=== PATIENT | male | born 1975 | race Caucasian/White ===

== ENCOUNTER → 2020-04-27 | Outpatient (CLI) | payer OTHER ==
[~2020-04-27] MED LIST: CLEOCIN HCL150 MG PO; LODINE CAP 300300 MG PO
== END ==
LOC: MRI 08:30
DX: M54.5 Low back pain (principal); N18.9 Chronic kidney disease, unspecified; C92.12 Chronic myeloid leukemia, BCR/ABL-positive, in relapse; I10 Essential (primary) hypertension; H91.90 Unspecified hearing loss, unspecified ear; R31.9 Hematuria, unspecified; D72.829 Elevated white blood cell count, unspecified; E78.2 Mixed hyperlipidemia; F17.210 Nicotine dependence, cigarettes, uncomplicated; L98.9 Disorder of the skin and subcutaneous tissue, unspecified; K64.9 Unspecified hemorrhoids; E55.9 Vitamin D deficiency, unspecified; M51.27 Other intervertebral disc displacement, lumbosacral region; M51.37 Other intervertebral disc degeneration, lumbosacral region
CPT/HCPCS: 72148

== ENCOUNTER → 2021-01-11 | Outpatient (CLI) | payer MEDICARE | LOC: KOH-I 09:20 | DX: M54.2 Cervicalgia (principal); M25.512 Pain in left shoulder; M47.812 Spondylosis without myelopathy or radiculopathy, cervical region | CPT/HCPCS: 72040; 73030 ==

== ENCOUNTER 2021-09-29 02:56 | Inpatient (IN) | payer MEDICARE ==
[~2021-09-29] VITALS: Ht 185.4 cm; Wt 106.7 kg
[2021-09-29 03:49] LABS: HEMOGLOBIN 14.1 gm/dl (14.0-17.5); RED BLOOD COUNT 4.42 M/UL (4.20-5.50)
[2021-09-29 04:12] LABS: BUN/CREATININE RATIO 16 (0-10)
[2021-09-29] MEDS ORDERED: LISINOPRIL40 MG PO (12:28)
[2021-09-29] MEDS ORDERED: GABAPENTIN300 MG PO (12:28)
[2021-09-29] MEDS ORDERED: SPRYCEL100 MG PO (12:29)
[2021-09-29] MEDS ORDERED: TYLENOL325 M1 PO (12:29)
[2021-09-29] MEDS ORDERED: EXCEDRIN EXTRA1 EACH PO (12:30)
[2021-09-30 02:00] LABS: HEMOGLOBIN 12.6 gm/dl (14.0-17.5); RED BLOOD COUNT 4.07 M/UL (4.20-5.50); WHITE BLOOD COUNT 22.1 K/UL (4.5-11.0)
[2021-09-30 11:38] LABS: WHITE BLOOD COUNT 28.1 K/UL (4.5-11.0)
[2021-10-01 04:51] LABS: HEMOGLOBIN 11.9 gm/dl (14.0-17.5); RED BLOOD COUNT 3.85 M/UL (4.20-5.50); WHITE BLOOD COUNT 16.8 K/UL (4.5-11.0)
[2021-10-01 10:14] LABS: CREATININE, URINE 106.4 mg/dL (Not Estab.)
[2021-10-02 02:45] LABS: HEMOGLOBIN 12.7 gm/dl (14.0-17.5); RED BLOOD COUNT 4.15 M/UL (4.20-5.50); WHITE BLOOD COUNT 14.5 K/UL (4.5-11.0)
[2021-10-02 08:13] LABS: COMPLEMENT C3, SERUM 203 mg/dL (82-167); COMPLEMENT C4, SERUM 48 mg/dL (12-38)
[2021-10-02 11:13] LABS: HBSAG SCREEN Negative (Negative)
[2021-10-02] MEDS ORDERED: LEVOFLOXACIN500 MG PO (13:17)
[2021-10-02 17:08] LABS: ANTI-DSDNA ANTIBODIES <1 IU/mL (0-9)
[2021-10-03 15:10] LABS: ORGANISM ID Not indicated. (.); SPECIMEN SOURCE Urine (.); STREPTOCOCCUS PNEUMONIAE AG Negative (Negative)
[2021-10-04 14:12] LABS: A/G RATIO 0.8 (0.7-1.7); ALBUMIN 2.6 g/dL (2.9-4.4); ALPHA-1-GLOBULIN 0.4 g/dL (0.0-0.4); ALPHA-2-GLOBULIN 1.4 g/dL (0.4-1.0); BETA GLOBULIN 0.8 g/dL (0.7-1.3); GAMMA GLOBULIN 0.8 g/dL (0.4-1.8); GLOBULIN, TOTAL 3.4 g/dL (2.2-3.9); IMMUNOGLOBULIN A, QN, SERUM 182 mg/dL (90-386); IMMUNOGLOBULIN G, QN, SERUM 865 mg/dL (603-1613); IMMUNOGLOBULIN M, QN, SERUM 32 mg/dL (20-172); M-SPIKE Not Observed g/dL (Not Observed)
[2021-10-04 17:12] LABS: ANTIMYELOPEROXIDASE (MPO) ABS <0.2 units (0.0-0.9); ANTIPROTEINASE 3 (PR-3) ABS <0.2 units (0.0-0.9); ATYPICAL PANCA <1:20 titer (Neg:<1:20); CYTOPLASMIC (C-ANCA) <1:20 titer (Neg:<1:20); PERINUCLEAR (P-ANCA) <1:20 titer (Neg:<1:20)
== END 2021-10-02 13:50 | disposition home or self-care (01) | DRG 682 ==
LOC: ER1 02:56 → MED SURG 4 04:45 → CDU 04:45 → MED SURG 4 04:45
PROVIDERS: Family Medicine; Internal Medicine; Internal Medicine Infectious Disease; Internal Medicine Nephrology; Registered Nurse; ADMIT Internal Medicine
PROC: B24BZZZ Ultrasonography of Heart with Aorta (ICD-10-PCS; principal; 2021-09-29)
DX: N17.9 Acute kidney failure, unspecified (principal); J18.9 Pneumonia, unspecified organism; C92.10 Chronic myeloid leukemia, BCR/ABL-positive, not having achieved remission; Z20.822 Contact with and (suspected) exposure to COVID-19; R07.81 Pleurodynia; G89.29 Other chronic pain; M54.9 Dorsalgia, unspecified; N18.31 Chronic kidney disease, stage 3a; I12.9 Hypertensive chronic kidney disease with stage 1 through stage 4 chronic kidney disease, or unspecified chronic kidney disease; E86.0 Dehydration; Z83.3 Family history of diabetes mellitus; Z82.49 Family history of ischemic heart disease and other diseases of the circulatory system
CPT/HCPCS: ECHO; 0241U; 36415; 70450; 71045; 71046; 71250; 78580; 80048; 80053; 80061; 81001; 81206; 81207; 82043; 82550; 82553; 82565; 82570; 82784; 83036; 83520; 83605; 83735; 84155; 84156; 84165; 84439; 84443; 84484; 85007; 85025; 85027; 85379; 85610; 85652; 85730; 86038; 86140; 86160; 86225; 86256; 86334; 87040; 87081; 87278; 87340; 87899; 93005; 93306; 93970; 96374; 96375; 96376; 99285; A9540; G0378; J0696; J1170; J1644; J2185; J2270; J2405

== ENCOUNTER → 2021-10-25 | Outpatient (CLI) | payer MEDICARE ==
[~2021-10-25] MED LIST changes: +EXCEDRIN EXTRA1 EACH PO; +GABAPENTIN300 MG PO; +LEVOFLOXACIN500 MG PO; +LISINOPRIL40 MG PO; +SPRYCEL100 MG PO; +TYLENOL325 M1 PO
== END ==
LOC: KOH-I 08:19
DX: J18.9 Pneumonia, unspecified organism (principal)
CPT/HCPCS: 71046

== ENCOUNTER 2021-10-30 05:44 | Emergency (ER) | payer MEDICARE ==
[2021-10-30 08:02] LABS: HEMOGLOBIN 12.9 gm/dl (14.0-17.5); RED BLOOD COUNT 4.13 M/UL (4.20-5.50); WHITE BLOOD COUNT 8.3 K/UL (4.5-11.0)
[2021-10-30] MEDS ORDERED: AMOX TR-K CLV1 EAC4 PO (10:16)
== END 2021-10-30 10:37 | disposition home or self-care (01) ==
LOC: ER1 05:44
PROVIDERS: Physician Assistant
DX: K57.32 Diverticulitis of large intestine without perforation or abscess without bleeding (principal); E78.5 Hyperlipidemia, unspecified; I10 Essential (primary) hypertension; Z90.89 Acquired absence of other organs; F17.200 Nicotine dependence, unspecified, uncomplicated
CPT/HCPCS: 80053; 81001; 82150; 83690; 85025; 99284; Q9967